=== PATIENT | female | born 1975 | race American Indian/Alaskan Native ===

== ENCOUNTER 2018-03-18 20:28 | Emergency (ER) | payer SELFPAY ==
--- NOTE | 2018-03-18 21:03 | Emergency Department Report ---
HPI - General Chief Complaint: Psych Time Seen by Provider: 03/18/18 20:52 - HPI HPI: Room 9 The patient is a 43-year-old female presented with a chief complaint of suicidal ideation. The patient states she has had suicidal ideation for 2 days secondary to depression from the anniversary of her father's . Patient denies any active attempts or plan. Location: Mental state Duration: 2 days Quality: Suicidal Severity: Serious Modifying factors: [see above] Context: [see above] Mode of transportation: [not driving] ED Past Medical Hx - Past Medical History Hx Psychiatric Treatment: Yes (bipolar disorder, schizophrenia) - Surgical History Past Surgical History?: No - Social History Smoking Status: Current Every Day Smoker Substance Use Type: None (denies illicit drug use) ED Review of Systems ROS: Stated complaint: MH Other details as noted in HPI Constitutional: no symptoms reported Eyes: denies: eye pain ENT: denies: throat pain Respiratory: no symptoms reported Cardiovascular: denies: chest pain Endocrine: no symptoms reported Gastrointestinal: denies: abdominal pain Genitourinary: denies: dysuria Musculoskeletal: denies: back pain Neurological: denies: headache Psychiatric: suicidal thoughts Physical Exam - Physical Exam Physical Exam: GENERAL: The patient is well-developed well-nourished female lying on stretcher not appearing to be in acute distress. [] HEENT: Normocephalic. Atraumatic. Extraocular motions are intact. Patient has moist mucous membranes. NECK: Supple. Trachea midline CHEST/LUNGS: Clear to auscultation. There is no respiratory distress noted. HEART/CARDIOVASCULAR: Regular. There is no tachycardia. There is no gallop rub or murmur. ABDOMEN: Abdomen is soft, nontender. Patient has normal bowel sounds. There is no abdominal distention. SKIN: There is no rash. There is no edema. There is no diaphoresis. NEURO: The patient is awake, alert, and oriented. The patient is cooperative. The patient has normal speech MUSCULOSKELETAL: There is no evidence of acute injury. ED Medical Decision Making - Lab Data Result diagrams: 03/18/18 21:10 03/18/18 21:10 Laboratory Tests 03/18/18 03/18/18 03/18/18 21:10 21:10 21:10 WBC 7.0 RBC 4.12 Hgb 11.8 Hct 35.2 MCV 85 MCH 29 MCHC 34 RDW 13.4 Plt Count 361 Lymph % (Auto) 24.1 [place] % (Auto) 6.3 Eos % (Auto) 3.3 Baso % (Auto) 0.6 Lymph # 1.7 [place] # 0.4 Eos # 0.2 Baso # 0.0 Seg Neutrophils % 65.7 Seg Neutrophils # 4.6 Sodium 140 Potassium 3.8 Chloride 106.5 Carbon Dioxide 24 Anion Gap 13 BUN 11 Creatinine 0.8 Estimated GFR > 60 BUN/Creatinine Ratio 14 Glucose 94 Calcium 8.6 Total Bilirubin < 0.20 AST 35 ALT 25 Alkaline Phosphatase 67 Total Protein 6.9 Albumin 4.0 Albumin/Globulin Ratio 1.4 HCG, Qual Urine Color Urine Turbidity Urine pH Ur Specific [place] Urine Protein Urine Glucose (UA) Urine Ketones Urine Blood Urine Nitrite Urine Bilirubin Urine Urobilinogen Ur Leukocyte Esterase Urine WBC (Auto) Urine RBC (Auto) U Epithel Cells (Auto) Salicylates 15.8 Urine Opiates Screen Urine Methadone Screen Acetaminophen Ur Barbiturates Screen Ur Phencyclidine Scrn Ur Amphetamines Screen U Benzodiazepines Scrn Urine Cocaine Screen U Marijuana (THC) Screen Drugs of Abuse Note Plasma/Serum Alcohol 03/18/18 03/18/18 03/18/18 21:10 21:10 21:10 WBC RBC Hgb Hct MCV MCH MCHC RDW Plt Count Lymph % (Auto) [place] % (Auto) Eos % (Auto) Baso % (Auto) Lymph # [place] # Eos # Baso # Seg Neutrophils % Seg Neutrophils # Sodium Potassium Chloride Carbon Dioxide Anion Gap BUN Creatinine Estimated GFR BUN/Creatinine Ratio Glucose Calcium Total Bilirubin AST ALT Alkaline Phosphatase Total Protein Albumin Albumin/Globulin Ratio HCG, Qual Negative Urine Color Urine Turbidity Urine pH Ur Specific [place] Urine Protein Urine Glucose (UA) Urine Ketones Urine Blood Urine Nitrite Urine Bilirubin Urine Urobilinogen Ur Leukocyte Esterase Urine WBC (Auto) Urine RBC (Auto) U Epithel Cells (Auto) Salicylates Urine Opiates Screen Urine Methadone Screen Acetaminophen < 5.0 L Ur Barbiturates Screen Ur Phencyclidine Scrn Ur Amphetamines Screen U Benzodiazepines Scrn Urine Cocaine Screen U Marijuana (THC) Screen Drugs of Abuse Note Plasma/Serum Alcohol < 0.01 03/18/18 03/18/18 21:11 21:11 WBC RBC Hgb Hct MCV MCH MCHC RDW Plt Count Lymph % (Auto) [place] % (Auto) Eos % (Auto) Baso % (Auto) Lymph # [place] # Eos # Baso # Seg Neutrophils % Seg Neutrophils # Sodium Potassium Chloride Carbon Dioxide Anion Gap BUN Creatinine Estimated GFR BUN/Creatinine Ratio Glucose Calcium Total Bilirubin AST ALT Alkaline Phosphatase Total Protein Albumin Albumin/Globulin Ratio HCG, Qual Urine Color Yellow Urine Turbidity Clear Urine pH 5.0 Ur Specific [place] 1.011 Urine Protein <15 mg/dl Urine Glucose (UA) Neg Urine Ketones Neg Urine Blood Neg Urine Nitrite Neg Urine Bilirubin Neg Urine Urobilinogen < 2.0 Ur Leukocyte Esterase Sm Urine WBC (Auto) 2.0 Urine RBC (Auto) 2.0 U Epithel Cells (Auto) 2.0 Salicylates Urine Opiates Screen Presumptive negative Urine Methadone Screen Presumptive negative Acetaminophen Ur Barbiturates Screen Presumptive negative Ur Phencyclidine Scrn Presumptive negative Ur Amphetamines Screen Presumptive negative U Benzodiazepines Scrn Presumptive negative Urine Cocaine Screen Presumptive negative U Marijuana (THC) Screen Presumptive negative Drugs of Abuse Note Disclamer Plasma/Serum Alcohol - Differential Diagnosis suicidal ideation Critical care attestation.: If time is entered above; I have spent that time in minutes in the direct care of this critically ill patient, excluding procedure time. ED Disposition Clinical Impression: Suicidal ideation Disposition: DC/TX-65 PSY HOSP/PSY UNIT Is pt being admited?: No Does the pt Need Aspirin: No Condition: Serious Referrals: ANJEL TAYLOR MD [Primary Care Provider] - 3-5 Days Time of Disposition: 21:58 (awaiting acceptance)
[2018-03-18 21:25] LABS: Basophils % (Auto) 0.6 % (0.0-1.8); Eosinophils # (Auto) 0.2 K/mm3 (0.0-0.4); Eosinophils % (Auto) 3.3 % (0.0-4.3); Hematocrit 35.2 % (30.3-42.9); Hemoglobin 11.8 gm/dl (10.1-14.3); Lymphocytes # (Auto) 1.7 K/mm3 (1.2-5.4); Lymphocytes % (Auto) 24.1 % (13.4-35.0); Mean Corpuscular HGB Conc 34 % (30-34); Mean Corpuscular Volume 85 fl (79-97); Monocytes # (Auto) 0.4 K/mm3 (0.0-0.8); Monocytes % (Auto) 6.3 % (0.0-7.3); Platelet Count 361 K/mm3 (140-440); Red Blood Count 4.12 M/mm3 (3.65-5.03); Red Cell Distribution Width 13.4 % (13.2-15.2)
[2018-03-18 21:41] LABS: Bilirubin,Urine NEG (Negative); Blood,Urine NEG (Negative); Color,Urine Yellow (Yellow); Protein,Urine <15 mg/dL mg/dL (Negative); Urobilinogen,Urine < 2.0 mg/dL (<2.0)
[2018-03-18] MEDS ORDERED: ATIVAN IM PRN (21:43)
[2018-03-18] MEDS ORDERED: BENADRYL IM PRN (21:43)
[2018-03-18] MEDS ORDERED: HALDOL IM PRN (21:43)
[2018-03-18 21:48] LABS: Amphetamine Screen,Urine PRESUMPTIVE NEGATIVE; Benzodiazepines Screen,Urine PRESUMPTIVE NEGATIVE; Cannabinoid Screen,Urine PRESUMPTIVE NEGATIVE; Cocaine Screen,Urine PRESUMPTIVE NEGATIVE; Methadone Screen,Urine PRESUMPTIVE NEGATIVE; Opiate Screen,Urine PRESUMPTIVE NEGATIVE
[2018-03-18 21:50] LABS: Alanine Aminotransferase 25 units/L (7-56); BUN/Creatinine Ratio 14; Blood Urea Nitrogen 11 mg/dL (7-17); Calcium 8.6 mg/dL (8.4-10.2); Hemolysis Index 5
[2018-03-19] MEDS ORDERED: THORAZINE IM PRN (08:01)
[2018-03-19] MEDS ORDERED: HALDOL IM PRN (08:09)
[2018-03-19] MEDS ORDERED: HALDOL ONE (08:14)
--- NOTE | 2018-03-19 10:48 | Consultation ---
History of Present Illness - Reason for Consult Consult date: 03/19/18 Reason for consult: Mental Health Evaluation Requesting physician: HERB STERLING - Chief Complaint Chief complaint: "The patient rambles" - History of Present Psychiatric Illness 43-year-old AA female who presented to the ER for SI's. Today the patient is disorganized during the assessment. She rambles on about irrelevant topic thr oughout the interview. She had to be redirected several times to keep her on topic. Also, the patient displays anxious behavior. This patient is a poor historian at this time. Medications and Allergies Allergies Allergy/AdvReac Type Severity Reaction Status Date / Time ziprasidone [From Geodon] Allergy Unknown Verified 03/18/18 21:48 Active Meds: Active Medications Buspirone HCl (Buspar) 7.5 mg PO BID PATRICIA Haloperidol Lactate (Haldol) 5 mg IM Q6H PRN PRN Reason: Agitation Last Admin: 03/19/18 08:23 Dose: 5 mg Documented by: Lorazepam (Ativan) 2 mg IM Q8H PRN PRN Reason: Agitation Last Admin: 03/19/18 01:32 Dose: 2 mg Documented by: Quetiapine Fumarate (Seroquel) 100 mg PO HS PATRICIA Past psychiatric history - Past Medical History Past Medical History: other (Unable to obtain ) Past Surgical History: Other (Unable obtain) - past Psychiatric treatment and history psychiatric treatment history: Unable to obtain a psy hx and a fam psy hx. - Social History Social history: other (Unable to obtain) Mental Status Exam - Vital signs Last Vital Signs Temp 98.0 F 03/19/18 08:00 Pulse 106 H 03/19/18 08:00 Resp 20 03/19/18 08:00 BP 134/97 03/19/18 08:00 Pulse Ox 98 03/19/18 08:00 - Exam Narrative exam: MSE: Appearance: disheveled Behavior: regular eye contact Speech: rambles Mood: unable to assess Affect: flat Thought Process: disorganized Thought Content: unable to assess Motor Activity: ambulatory Cognition: alert Insight: poor Judgment: poor Results Result Diagrams: 03/18/18 21:10 03/18/18 21:10 Abnormal lab results 03/18/18 Range/Units 21:10 Acetaminophen < 5.0 L (10.0-30.0) ug/mL All other labs normal. Assessment and Plan Assessment and plan: Impression: Unspecified Psychosis. Today the patient is disorganized during the assessment. UDS is negative. DDx: Bipolar DO with psychosis, Schizoaffective DO Recommendation/Plan: Continue 1013 and start Seroqule 100 mg PO HS for psyhcosis and Buspar 7.5 mg PO BID for anxiety. Attempted to discuss possible metabolic side effects of Seroquel with the patient. Dispo: The patient was referred to inpatient psy services. Will staff with Dr Lee Romero.
[2018-03-19] MEDS: BUSPAR PO SCH (11:00)
--- NOTE | 2018-03-20 07:47 | Progress Note ---
Subjective - Reason for Consult Consult date: 03/20/18 Reason for consult: Psychiatry Follow-up - Chief Complaint Chief complaint: "Hello" 3-year-old AA female who presented to the ER for SI's. Today the patient is tangent and hyper verbal during the assessment. She had to be redirected several times to keep her topic. She stated could not logically explain why she came to the ER when asked. She talks about her kids random and stated that she's from " [place]." She denies SI/HI's and AVH's. No indications of side effects of her medications. Mental Status Exam - Vital signs Last Vital Signs Temp 97.7 F 03/19/18 18:00 Pulse 90 03/20/18 04:00 Resp 16 03/20/18 04:00 BP 144/64 03/20/18 04:00 Pulse Ox 98 03/20/18 04:00 - Exam Narrative exam: MSE: Appearance: disheveled Behavior: regular eye contact Speech: hyper verbal Mood: labile Affect: congruent to mood Thought Process: tangential, loose associations Thought Content: denies SI/HI's and AVH's, delusional Motor Activity: ambulatory Cognition: A/O x3 Insight: poor Judgment: poor Assessment and Plan Impression: Unspecified Psychosis. Today the patient is tangent and hyper verbal during the assessment. UDS is negative. DDx: Bipolar DO with psychosis, Schizoaffective DO Recommendation/Plan: Continue 1013 and Seroquel 100 mg PO HS for psychosis and Buspar 7.5 mg PO BID for anxiety. Sstart Depakote 500 mg PO BID for mood. Attempted to discuss possible metabolic side effects of Seroquel with the patient. Dispo: The patient was referred to inpatient psy services. Will staff with Dr Rachel Romero.
[2018-03-20] MEDS: BUSPAR PO SCH ×3 (11:23→21:54)
[2018-03-20] MEDS ORDERED: NORVASC PO ONE (16:43)
[2018-03-20] MEDS ORDERED: NORVASC ONE (16:43)
--- NOTE | 2018-03-21 08:24 | Progress Note ---
Subjective - Reason for Consult Consult date: 03/21/18 Reason for consult: Psychiatry Follow-up - Chief Complaint Chief complaint: "I want to leave" 3-year-old AA female who presented to the ER for SI's. Today the patient is still tangent during the assessment. The was several questions about her night, but her answers were not logical. She started cursing for no reason and was asked to stop, she refused. The interview was terminated by me the provider. No gestures of SI/HI's. No indications of side effects of her medications. Mental Status Exam - Vital signs Last Vital Signs Temp 98.9 F 03/21/18 01:00 Pulse 83 03/21/18 01:00 Resp 18 03/21/18 01:00 BP 117/76 03/21/18 01:00 Pulse Ox 97 03/21/18 01:00 - Exam Narrative exam: MSE: Appearance: disheveled Behavior: regular eye contact Speech: regular rate and tone Mood: labile Affect: congruent to mood Thought Process: tangential Thought Content: no gestures of SI/HI's and AVH's, delusional Motor Activity: ambulatory Cognition: A/O x3 Insight: poor Judgment: poor Assessment and Plan Impression: Unspecified Psychosis. Today the patient is still tangent during the assessment. UDS is negative. DDx: Bipolar DO with psychosis, Schizoaffective DO Recommendation/Plan: Continue 1013, Seroquel 100 mg PO HS for psychosis, Buspar 7.5 mg PO BID for anxiety, and Depakote 500 mg PO BID for mood. Attempted to discuss possible metabolic side effects of Seroquel with the patient. Dispo: The patient was accepted at [facility] pending transport time. Will staff with Dr Bryan.
[2018-03-21] MEDS: BUSPAR PO SCH ×2 (10:41→22:23)
[2018-03-22] MEDS: BUSPAR PO SCH ×2 (09:30→22:17)
--- NOTE | 2018-03-22 13:48 | Progress Note ---
Subjective - Reason for Consult Consult date: 03/22/18 Reason for consult: Psychiatry Follow-up - Chief Complaint Chief complaint: 'When will I be leaving" 3-year-old AA female who presented to the ER for SI's. Today the patient is calm during the assessment. She wanted to know her transport time for [facility] before she would answer any questions. She is more lucid today during the interview, but continues to be hyper verbal. She denies SI/HI's and AVH's. No indications of side effects of her medication. Mental Status Exam - Vital signs Last Vital Signs Temp 98.2 F 03/22/18 07:57 Pulse 71 03/22/18 07:57 Resp 20 03/22/18 07:57 BP 138/92 03/22/18 07:57 Pulse Ox 98 03/22/18 07:57 - Exam Narrative exam: MSE: Appearance: calm Behavior: regular eye contact Speech: regular rate and tone Mood: labile Affect: congruent to mood Thought Process: tangential Thought Content: no gestures of SI/HI's and AVH's, delusional Motor Activity: ambulatory Cognition: A/O x3 Insight: variable Judgment: variable Assessment and Plan Impression: Unspecified Psychosis. Today the patient is calm during the assessment. UDS is negative. DDx: Bipolar DO with psychosis, Schizoaffective DO Recommendation/Plan: Continue 1013, Seroquel 100 mg PO HS for psychosis, Buspar 7.5 mg PO BID for anxiety, and Depakote 500 mg PO BID for mood. Attempted to discuss possible metabolic side effects of Seroquel with the patient. Dispo: The patient was accepted at [facility] for inpatient psy services pending transport time. Will staff with Dr Bryan.
[2018-03-23] MEDS: BUSPAR PO SCH ×2 (09:44→22:16)
--- NOTE | 2018-03-23 17:59 | Progress Note ---
Subjective - Reason for Consult Consult date: 03/23/18 Reason for consult: follow up Mental Status Exam - Vital signs Last Vital Signs Temp 98.3 F 03/23/18 07:21 Pulse 81 03/23/18 07:21 Resp 18 03/23/18 07:21 BP 115/85 03/23/18 07:21 Pulse Ox 97 03/23/18 07:21 Assessment and Plan "When will I be leaving" 43-year-old AA female who presented to the ER for SI's. Today the patient is loud, physically intrusive, and demanding attention of staff during the assessment. She wanted to know her transport time for [facility]. She denies SI/HI's and AVH's. No indications of side effects of her medication. - Exam Narrative exam: MSE: Appearance: in hospital attire Behavior: physically intrusive Speech: loud and pressured Mood: labile Affect: congruent to mood Thought Process: tangential Thought Content: no gestures of SI/HI's and AVH's, delusional Motor Activity: ambulatory Cognition: A/O x3 Insight: variable Judgment: variable Assessment and Plan Impression: Unspecified Psychosis/ manic symptoms. She is loud, physically intrusive, and demanding attention when she asks questions about cutting her fingernails, using the phone, or other various requests. UDS is negative. DDx: Bipolar DO with psychosis, Schizoaffective DO Recommendation/Plan: Continue 1013, Seroquel 100 mg PO HS for psychosis, Buspar 7.5 mg PO BID for anxiety, and Depakote 500 mg PO BID for mood. Dispo: The patient was accepted at [facility] for inpatient psy services pending transport time. Will staff with Dr Bryan.
[2018-03-24 09:16] VITALS: BP 116/82
[2018-03-24] MEDS: BUSPAR PO SCH (10:50)
== END 2018-03-24 10:59 ==
LOC: EEVIPCON 20:28 → ED 20:28
DX: F29 Unspecified psychosis not due to a substance or known physiological condition (principal); F31.9 Bipolar disorder, unspecified; F20.9 Schizophrenia, unspecified; F17.200 Nicotine dependence, unspecified, uncomplicated; Z88.8 Allergy status to other drugs, medicaments and biological substances
CPT/HCPCS: 36415; 80053; 80164; 80307; 81001; 82150; 82962; 83690; 84703; 85025; 96372; 99285; G0480; J1200; J1630; J2060; 80320

== ENCOUNTER 2018-07-12 20:23 | Emergency (ER) | payer MEDICAID ==
[2018-07-12] MEDS ORDERED: BOOSTRIX IM ONE (20:59)
[2018-07-12] MEDS ORDERED: BENADRYL PO PRN (21:01)
--- NOTE | 2018-07-12 21:01 | Emergency Department Report ---
HPI - General Chief Complaint: Back Pain/Injury Time Seen by Provider: 07/12/18 20:50 - HPI HPI: Room 8 The patient is a 43-year-old female presenting with a chief complaint. The patient has a history of schizophrenia and bipolar disorder who was reportedly found by EMS at a gas station using a piece of glass to cut her wrists. The patient admits to previous suicide attempts by overdosing on aspirin approximately 5 years ago. Patient denies any other attempts at harming herself. The patient has rambling speech. Location: Mental state Duration: [See above] Quality: Suicidal Severity: Severe Modifying factors: [see above] Context: [see above] Mode of transportation: [not driving] ED Past Medical Hx - Past Medical History Previous Medical History?: Yes Hx Hypertension: Yes Hx Diabetes: Yes Hx Headaches / Migraines: Yes Hx Psychiatric Treatment: Yes (bipolar disorder, schizophrenia) - Surgical History Past Surgical History?: Yes Additional Surgical History: Hysterectomy - Family History Family history: no significant - Social History Smoking Status: Current Every Day Smoker Substance Use Type: Cocaine - Medications Home Medications: Home Medications Medication Instructions Recorded Confirmed Last Taken Type Acyclovir [Acyclovir Ointment] 5 gm TP BID 07/12/18 07/12/18 Unknown History Acyclovir [Zovirax Tab] 400 mg PO BID 07/12/18 07/12/18 Unknown History Ibuprofen [Motrin 800 MG tab] 800 mg PO Q8H 07/12/18 07/12/18 Unknown History [place] Carbonate [Eskalith] 150 mg PO BID 07/12/18 07/12/18 Unknown History QUEtiapine [SEROquel] 25 mg PO BID 07/12/18 07/12/18 Unknown History diphenhydrAMINE [Benadryl CAP] 50 mg PO QHS PRN 07/12/18 07/12/18 Unknown History risperiDONE [RisperDAL] 4 mg PO BID 07/12/18 07/12/18 Unknown History ED Review of Systems ROS: Stated complaint: MH Other details as noted in HPI Constitutional: no symptoms reported Eyes: denies: eye pain ENT: denies: throat pain Respiratory: no symptoms reported Cardiovascular: denies: chest pain Endocrine: no symptoms reported Gastrointestinal: denies: abdominal pain Genitourinary: denies: dysuria Musculoskeletal: denies: back pain Skin: other (wrist abrasion) Neurological: denies: headache Psychiatric: suicidal thoughts Physical Exam - Physical Exam Vital Signs: Vital Signs 07/12/18 20:51 Temperature 99.3 F Pulse Rate 89 Respiratory 18 Rate Blood Pressure 120/81 [Right] O2 Sat by Pulse 97 Oximetry Physical Exam: GENERAL: The patient is well-developed well-nourished female sitting on stretcher exhibiting rambling speech. [] HEENT: Normocephalic. Atraumatic. Extraocular motions are intact. Patient has moist mucous membranes. NECK: Supple. Trachea midline CHEST/LUNGS: Clear to auscultation. There is no respiratory distress noted. HEART/CARDIOVASCULAR: Regular. There is no tachycardia. There is no gallop rub or murmur. ABDOMEN: Abdomen is soft, nontender. Patient has normal bowel sounds. There is no abdominal distention. SKIN: There is a superficial linear abrasion to the left wrist. Hemostatic. There is no diaphoresis. NEURO: The patient is awake and alert. The patient is cooperative. The patient has no focal neurologic deficits. The patient has normal speech MUSCULOSKELETAL: There is no evidence of acute injury. ED Course Vital Signs 07/12/18 20:51 Temperature 99.3 F Pulse Rate 89 Respiratory 18 Rate Blood Pressure 120/81 [Right] O2 Sat by Pulse 97 Oximetry ED Medical Decision Making - Lab Data Result diagrams: 07/12/18 21:06 07/12/18 21:06 Laboratory Tests 07/12/18 07/12/18 07/12/18 20:40 20:40 21:06 WBC RBC Hgb Hct MCV MCH MCHC RDW Plt Count Lymph % (Auto) [place] % (Auto) Eos % (Auto) Baso % (Auto) Lymph # [place] # Eos # Baso # Seg Neutrophils % Seg Neutrophils # Sodium Potassium Chloride Carbon Dioxide Anion Gap BUN Creatinine Estimated GFR BUN/Creatinine Ratio Glucose Calcium Urine Color Yellow Urine Turbidity Clear Urine pH 5.0 Ur Specific [place] 1.029 Urine Protein <15 mg/dl Urine Glucose (UA) Neg Urine Ketones Neg Urine Blood Neg Urine Nitrite Neg Urine Bilirubin Neg Urine Urobilinogen < 2.0 Ur Leukocyte Esterase Neg Urine WBC (Auto) 4.0 Urine RBC (Auto) 4.0 U Epithel Cells (Auto) 1.0 Urine Bacteria (Auto) 1+ Urine Mucus Few Urine Opiates Screen Presumptive negative Urine Methadone Screen Presumptive negative Ur Barbiturates Screen Presumptive negative Ur Phencyclidine Scrn Presumptive negative Ur Amphetamines Screen Presumptive negative U Benzodiazepines Scrn Presumptive negative [place] 0.1 Urine Cocaine Screen Presumptive positive U Marijuana (THC) Screen Presumptive negative Drugs of Abuse Note Disclamer Plasma/Serum Alcohol 07/12/18 07/12/18 07/12/18 21:06 21:06 21:06 WBC 7.4 RBC 3.84 Hgb 11.3 Hct 32.2 MCV 84 MCH 30 MCHC 35 H RDW 14.8 Plt Count 327 Lymph % (Auto) 37.5 H [place] % (Auto) 11.1 H Eos % (Auto) 3.0 Baso % (Auto) 0.8 Lymph # 2.8 [place] # 0.8 Eos # 0.2 Baso # 0.1 Seg Neutrophils % 47.6 Seg Neutrophils # 3.5 Sodium 140 Potassium 3.9 Chloride 106.9 Carbon Dioxide 24 Anion Gap 13 BUN 15 Creatinine 0.7 Estimated GFR > 60 BUN/Creatinine Ratio 21 Glucose 105 H Calcium 9.5 Urine Color Urine Turbidity Urine pH Ur Specific [place] Urine Protein Urine Glucose (UA) Urine Ketones Urine Blood Urine Nitrite Urine Bilirubin Urine Urobilinogen Ur Leukocyte Esterase Urine WBC (Auto) Urine RBC (Auto) U Epithel Cells (Auto) Urine Bacteria (Auto) Urine Mucus Urine Opiates Screen Urine Methadone Screen Ur Barbiturates Screen Ur Phencyclidine Scrn Ur Amphetamines Screen U Benzodiazepines Scrn [place] Urine Cocaine Screen U Marijuana (THC) Screen Drugs of Abuse Note Plasma/Serum Alcohol < 0.01 - Differential Diagnosis suicidal ideation, schizophrenia Critical care attestation.: If time is entered above; I have spent that time in minutes in the direct care of this critically ill patient, excluding procedure time. ED Disposition Clinical Impression: Suicidal ideation, Schizophrenia Disposition: DC/TX-65 PSY HOSP/PSY UNIT Is pt being admited?: No Does the pt Need Aspirin: No Condition: Serious Time of Disposition: 21:00 (awaiting acceptance)
[2018-07-12 21:07] LABS: Bacteria,Urine 1+ /HPF (Negative); Bilirubin,Urine NEG (Negative); Blood,Urine NEG (Negative); Color,Urine Yellow (Yellow); Mucus,Urine FEW /HPF; Protein,Urine <15 mg/dL mg/dL (Negative); Urobilinogen,Urine < 2.0 mg/dL (<2.0)
[2018-07-12] MEDS ORDERED: BENADRYL PO ONE (21:10)
[2018-07-12 21:15] LABS: Amphetamine Screen,Urine PRESUMPTIVE NEGATIVE; Benzodiazepines Screen,Urine PRESUMPTIVE NEGATIVE; Cannabinoid Screen,Urine PRESUMPTIVE NEGATIVE; Methadone Screen,Urine PRESUMPTIVE NEGATIVE; Opiate Screen,Urine PRESUMPTIVE NEGATIVE
[2018-07-12 21:23] LABS: Basophils # (Auto) 0.1 K/mm3 (0.0-0.1); Basophils % (Auto) 0.8 % (0.0-1.8); Eosinophils # (Auto) 0.2 K/mm3 (0.0-0.4); Hematocrit 32.2 % (30.3-42.9); Hemoglobin 11.3 gm/dl (10.1-14.3); Lymphocytes # (Auto) 2.8 K/mm3 (1.2-5.4); Lymphocytes % (Auto) 37.5 % (13.4-35.0); Mean Corpuscular HGB Conc 35 % (30-34); Mean Corpuscular Volume 84 fl (79-97); Monocytes # (Auto) 0.8 K/mm3 (0.0-0.8); Monocytes % (Auto) 11.1 % (0.0-7.3); Platelet Count 327 K/mm3 (140-440); Red Blood Count 3.84 M/mm3 (3.65-5.03); Red Cell Distribution Width 14.8 % (13.2-15.2)
[2018-07-12 21:31] LABS: Cocaine Screen,Urine PRESUMPTIVE POSITIVE
[2018-07-12 21:44] LABS: BUN/Creatinine Ratio 21; Blood Urea Nitrogen 15 mg/dL (7-17); Calcium 9.5 mg/dL (8.4-10.2); Hemolysis Index 6
[2018-07-13] MEDS ORDERED: ATIVAN IM ONE (07:59)
[2018-07-13] MEDS ORDERED: GEODON IM ONE (07:59)
[2018-07-13 10:01] LABS: Creatine Kinase MB 4.4 ng/mL (0.0-4.0)
[2018-07-13] MEDS ORDERED: IBUPROFEN PO ONE ×2 (16:44→16:45)
--- NOTE | 2018-07-13 18:22 | Consultation ---
History of Present Illness - Reason for Consult Consult date: 07/13/18 Reason for consult: psychiatric evaluation - Chief Complaint Chief complaint: "I felt suicidal." - History of Present Psychiatric Illness 43-year-old AA female who presented to the ER for SI's. Today the patient is disorganized during the assessment. She rambles on about irrelevant topic throughout the interview. She had to be redirected several times to keep her on topic. This patient is a poor historian at this time. She reports not having her meds since 2 weeks ago but her lithium level is 0.1. She states her parents and then says she needs a shot for worms. She presented in 2018 for similar reasons. Past psychiatric history - Past Medical History Past Medical History: other (Unable to obtain ) Past Surgical History: Other (Unable obtain) - past Psychiatric treatment and history psychiatric treatment history: Unable to obtain a psy hx and a fam psy hx. - Social History Social history: other (Unable to obtain) Medications and Allergies Allergies Allergy/AdvReac Type Severity Reaction Status Date / Time ziprasidone [From Geodon] Allergy Unknown Verified 03/18/18 21:48 Home Medications Medication Instructions Recorded Confirmed Last Taken Type Acyclovir [Acyclovir Ointment] 5 gm TP BID 07/12/18 07/12/18 Unknown History Acyclovir [Zovirax Tab] 400 mg PO BID 07/12/18 07/12/18 Unknown History Ibuprofen [Motrin 800 MG tab] 800 mg PO Q8H 07/12/18 07/12/18 Unknown History [place] Carbonate [Eskalith] 150 mg PO BID 07/12/18 07/12/18 Unknown History QUEtiapine [SEROquel] 25 mg PO BID 07/12/18 07/12/18 Unknown History diphenhydrAMINE [Benadryl CAP] 50 mg PO QHS PRN 07/12/18 07/12/18 Unknown History risperiDONE [RisperDAL] 4 mg PO BID 07/12/18 07/12/18 Unknown History Albuterol Sulfate [Proventil Hfa] 2 puff IH TID 07/13/18 07/13/18 Unknown History amLODIPine [Norvasc] 10 mg PO DAILY 07/13/18 07/13/18 Unknown History Active Meds: Active Medications Diphenhydramine HCl (Benadryl) 50 mg PO QHS PRN PRN Reason: Insomnia Last Admin: 07/12/18 21:18 Dose: 50 mg Documented by: Quetiapine Fumarate (Seroquel) 25 mg PO BID PATRICIA Last Admin: 07/13/18 11:31 Dose: 25 mg Documented by: Mental Status Exam - Vital signs Last Vital Signs Temp 98.6 F 07/13/18 15:41 Pulse 66 07/13/18 15:41 Resp 16 07/13/18 15:41 BP 112/72 07/13/18 15:41 Pulse Ox 97 07/13/18 15:41 - Exam Narrative exam: MSE: Appearance: disheveled Behavior: regular eye contact Speech: rambles Mood: unable to assess Affect: flat Thought Process: disorganized Thought Content: delusional and disorganized Motor Activity: ambulatory Cognition: alert Insight: poor Judgment: poor Results Result Diagrams: 07/12/18 21:06 07/12/18 21:06 Abnormal lab results 07/12/18 07/12/18 07/12/18 Range/Units 21:06 21:06 21:06 MCHC (30-34) % Lymph % (Auto) (13.4-35.0) % [place] % (Auto) (0.0-7.3) % Glucose 105 H (65-100) mg/dL Total Creatine Kinase (30-135) units/L CK-MB (CK-2) (0.0-4.0) ng/mL Salicylates < 0.3 L (2.8-20.0) mg/dL Acetaminophen < 5.0 L (10.0-30.0) ug/mL 07/12/18 07/13/18 Range/Units 21:06 08:51 MCHC 35 H (30-34) % Lymph % (Auto) 37.5 H (13.4-35.0) % [place] % (Auto) 11.1 H (0.0-7.3) % Glucose (65-100) mg/dL Total Creatine Kinase 530 H (30-135) units/L CK-MB (CK-2) 4.4 H (0.0-4.0) ng/mL Salicylates (2.8-20.0) mg/dL Acetaminophen (10.0-30.0) ug/mL All other labs normal. Assessment and Plan Assessment and plan: Impression: Unspecified Psychosis. Today the patient is disorganized during the assessment. UDS pos for cocaine. CK is 530 lithium 0.1 DDx: Bipolar DO with psychosis, Schizoaffective DO Recommendation/Plan: Continue 1013 Seroquel 25mg bid was entered by ER doctor and will be continued with recheck of ck in 24 hours continue lithium 300mg bid and may increase once dose is reconciled. BARIATRIC SURGEON attempted to provide education regarding medication risks/benefits. Dispo: The patient was referred to inpatient psy services. Will staff with Dr Lee Romero.
[2018-07-13] MEDS: ESKALITH PO SCH (22:18)
[2018-07-14] MEDS ORDERED: IBUPROFEN ONE (03:24)
[2018-07-14] MEDS ORDERED: IBUPROFEN PO ONE (03:26)
[2018-07-14] MEDS: GEODON IM SCH ×2 (08:18→22:24)
[2018-07-14 08:56] LABS: HCG Qualitative,Urine Negative (Negative)
[2018-07-14] MEDS: ESKALITH PO SCH ×2 (11:47→22:18)
--- NOTE | 2018-07-14 19:11 | Progress Note ---
Subjective - Reason for Consult Consult date: 07/14/18 Reason for consult: follow up - Chief Complaint Chief complaint: "I have high blood pressure." 43-year-old AA female who presented to the ER for SI's. Today the patient is disorganized during the assessment. She rambles on about irrelevant topic throughout the interview. She had to be redirected several times to keep her on topic. This patient is a poor historian at this time. She presented in 2018 for similar reasons. No changes since the previous exam. - Exam Narrative exam: MSE: Appearance: disheveled Behavior: regular eye contact Speech: rambles Mood: unable to assess Affect: flat Thought Process: disorganized Thought Content: delusional and disorganized Motor Activity: ambulatory Cognition: alert Insight: poor Judgment: poor Mental Status Exam - Vital signs Last Vital Signs Temp 97.5 F L 07/14/18 14:09 Pulse 103 H 07/14/18 14:09 Resp 18 07/14/18 14:09 BP 137/80 07/14/18 14:09 Pulse Ox 100 07/14/18 14:09 Assessment and Plan Impression: Unspecified Psychosis. Today the patient is disorganized during the assessment. UDS pos for cocaine. CK is 530 lithium 0.1 DDx: Bipolar DO with psychosis, Schizoaffective DO Recommendation/Plan: Continue 1013 Seroquel 25mg bid was entered by ER doctor and will be continued with recheck of ck in 24 hours continue lithium 300mg bid and may increase once dose is reconciled. CEMENT CRUSHER OPERATOR attempted to provide education regarding medication risks/benefits. Dispo: The patient was referred to inpatient psy services. Will staff with Dr Lee Romero.
--- NOTE | 2018-07-15 08:26 | Progress Note ---
Subjective - Reason for Consult Consult date: 07/15/18 Reason for consult: Psychiatry Follow-up - Chief Complaint Chief complaint: "I am okay now" 43-year-old AA female who presented to the ER for SI's. This patient is known to me. Today the patient was calm and cooperative during the assessment. She stated that she was suicidal because of her homelessness. She stated that she would like assistance with placement. She is adamant that she isn't suicidal when asked. She stated that she will be complaint with her medications. She denies SI/HI's and AVH's. She denies any side effects of her medications. Mental Status Exam - Vital signs Last Vital Signs Temp 98.4 F 07/15/18 03:47 Pulse 82 07/15/18 03:47 Resp 18 07/15/18 03:47 BP 115/76 07/15/18 03:47 Pulse Ox 97 07/15/18 03:47 - Exam Narrative exam: MSE: Appearance: calm, cooperative Behavior: regular eye contact Speech: regular rate and tone Mood: "okay" Affect: congruent to mood Thought Process: circumstantial Thought Content: denies SI/HI's and AVH's Motor Activity: sitting up in bed Cognition: A/O x3 Insight: fair Judgment: fair Assessment and Plan Impression: Unspecified Psychosis. Substance Use Do (cocaine). Today the patient is calm during the assessment. The patient iis no threat to self. DDx: Substance Inducecd Psychosis Bipolar DO, ,Schizoaffective DO Recommendation/Plan: Rescind 1013. Continue Seroquel 25 mg PO BID for mood/psychosi and [place] 300 mg PO BID for mood. Discussed possible metabolic side effects of Seroquel with the patient, she verbalized understanding. Case Mgmt involvement, the patient will need assistance with placement. Dispo: The patient can follow up with [facility] for outpatient psy services. Staffed with Dr Lee Romero.
[2018-07-15 09:10] VITALS: BP 126/83
[2018-07-15] MEDS ORDERED: WATER FOR INJ Sterile (PF) 10 ML ONE (09:55)
[2018-07-15] MEDS: ESKALITH PO SCH (11:19)
[2018-07-15] MEDS: GEODON IM SCH (11:55)
== END 2018-07-15 15:35 ==
LOC: EEVIPCON 20:23 → ED 20:23
DX: S60.812A Abrasion of left wrist, initial encounter (principal); F29 Unspecified psychosis not due to a substance or known physiological condition; F12.10 Cannabis abuse, uncomplicated; F14.10 Cocaine abuse, uncomplicated; I10 Essential (primary) hypertension; E11.9 Type 2 diabetes mellitus without complications; G43.909 Migraine, unspecified, not intractable, without status migrainosus; F31.9 Bipolar disorder, unspecified; F20.9 Schizophrenia, unspecified; F17.200 Nicotine dependence, unspecified, uncomplicated; Z88.8 Allergy status to other drugs, medicaments and biological substances; Z90.710 Acquired absence of both cervix and uterus; Z79.899 Other long term (current) drug therapy; Z59.0 Homelessness; W25.XXXA Contact with sharp glass, initial encounter; Y93.89 Activity, other specified; Y92.89 Other specified places as the place of occurrence of the external cause; Y99.8 Other external cause status
CPT/HCPCS: 36415; 80048; 80178; 80307; 81001; 81025; 82550; 82553; 85025; 90471; 90715; 96372; 99284; G0480; J3486; 80320